=== PATIENT | male | born 1985 | race Caucasian/White ===

== ENCOUNTER 2020-12-16 07:59 | Day surgery (SDC) | payer BC ==
[~2020-12-16 07:59] MED LIST: Lactated Ringers 1,000 ML IV SCH
[2020-12-16] MEDS ORDERED: fentaNYL 100 MCG/2 ML SDV ONE (08:41)
[2020-12-16] MEDS ORDERED: Lidocaine 2% 5 ML SDV ONE (08:41)
--- NOTE | 2020-12-16 08:46 | PCM.PREANE ---
Preanesthetic Assessment - Anesthesia/Transfusion/Family Hx Anesthesia History: No Prior Anesthesia Other Type of Anesthesia Reaction Comment: states his mother had problems but not sure what it was Transfusion History: No Prior Transfusion(s) - Review of Systems General: No Symptoms Pulmonary: No Symptoms Cardiovascular: No Symptoms Gastrointestinal: Diarrhea, Difficulty Swallowing Neurological: No Symptoms Other: Reports: None - Physical Assessment NPO Status Date: 12/16/20 NPO Status Time: 00:00 Vital Signs: Last Vital Signs Temp 97.2 F 12/16/20 08:28 Pulse 62 12/16/20 08:28 Resp 16 12/16/20 08:28 BP 136/68 12/16/20 08:28 Pulse Ox 100 12/16/20 08:28 Height: 6 ft Weight: 205 lb ASA Class: 2 Mental Status: Alert & Oriented x3 Airway Class: Mallampati = 2 Dentition: Reports: Normal Dentition ROM/Head Extension: Full Lungs: Clear to Auscultation, Normal Respiratory Effort Cardiovascular: Regular Rate, Regular Rhythm - Allergies Allergies/Adverse Reactions: Allergies Allergy/AdvReac Type Severity Reaction Status Date / Time animal dander Allergy "showed up Verified 12/16/20 08:32 with allergy testing" - Blood Blood Available: No - Acknowledgements Anesthesia Type Planned: General Anesthesia Pt an Appropriate Candidate for the Planned Anesthesia: Yes Alternatives and Risks of Anesthesia Discussed w Pt/Guardian: Yes Pt/Guardian Understands and Agrees with Anesthesia Plan: Yes PreAnesthesia Questionnaire - Past Health History Medical/Surgical History: Denies Medical/Surgical History Gastrointestinal History: Reports: GERD, Other (See Below) Other Gastrointestinal History: RUQ pain, weight loss Musculoskeletal History: Reports: Arthritis, Back Pain, Chronic, Fracture Other Musculoskeletal History: hx fx arm, wrist, ankle & fingers Endocrine/Metabolic History: Reports: None - Past Surgical History Head Surgeries/Procedures: Reports: None GI Surgical History: Reports: None Endocrine Surgical History: Reports: None Musculoskeletal Surgical History: Reports: None - SUBSTANCE USE Tobacco Use Status *Q: Current Every Day Tobacco User Tobacco Use Within Last Twelve Months: Vaping Recreational Drug Type: Reports: Marijuana/Hashish Recreational Drug Last Use: vaps medical marijuana - HOME MEDS Home Medications: Home Meds Levocetirizine Dihydrochloride [Xyzal] 1 tab PO DAILY 12/10/20 [History] - CURRENT (IN HOUSE) MEDS Current Meds: Current Medications Lactated Ringer's (Ringers, Lactated) 1,000 mls @ 125 mls/hr IV ASDIRECTED ALBERTO Discontinued Medications Fentanyl (Fentanyl 100 Mcg/2 Ml Sdv) Confirm Administered Dose 100 mcg .ROUTE .STK-MED ONE Stop: 12/16/20 08:42 Lidocaine (Lidocaine 2% 5 Ml Sdv) Confirm Administered Dose 5 ml .ROUTE .STK-MED ONE Stop: 12/16/20 08:42
[2020-12-16] MEDS ORDERED: Propofol 200 MG/20 ML SDV ONE ×2 (09:36→09:52)
--- NOTE | 2020-12-16 10:22 | PCM.POSTAN ---
POST ANESTHESIA ASSESSMENT - MENTAL STATUS Mental Status: Alert, Oriented - VITAL SIGNS Vital Signs: Last Vital Signs Temp 97.2 F 12/16/20 08:28 Pulse 62 12/16/20 08:28 Resp 16 12/16/20 08:28 BP 136/68 12/16/20 08:28 Pulse Ox 100 12/16/20 08:28 - RESPIRATORY Respiratory Status: Respiratory Rate WNL, Airway Patent, O2 Saturation Stable - CARDIOVASCULAR CV Status: Pulse Rate WNL, Blood Pressure Stable - GASTROINTESTINAL GI Status: No Symptoms - POST OP HYDRATION Hydration Status: Adequate & Stable
--- NOTE | 2020-12-16 10:23 | PCM48HPAN ---
Post Anesthesia Note - EVALUATION WITHIN 48HRS OF ANESTHETIC Vital Signs in Normal Range: Yes Patient Participated in Evaluation: Yes Respiratory Function Stable: Yes Airway Patent: Yes Cardiovascular Function Stable: Yes Hydration Status Stable: Yes Pain Control Satisfactory: Yes Nausea and Vomiting Control Satisfactory: Yes Mental Status Recovered: Yes Vital Signs: Last Vital Signs Temp 97.2 F 12/16/20 08:28 Pulse 62 12/16/20 08:28 Resp 16 12/16/20 08:28 BP 136/68 12/16/20 08:28 Pulse Ox 100 12/16/20 08:28
--- NOTE | 2020-12-16 10:27 | PCM.OPNOTE ---
- General Post-Op/Procedure Note Date of Surgery/Procedure: 12/16/20 Operative Procedure(s): Colonoscopy with biopsies. EGD with Biopsies Findings: Mild gastritis Normal colonoscopy dictation number [id number] Pre Op Diagnosis: Epigastric pain and distal colon thickening seen on CT scan Post-Op Diagnosis: Mild gastritis. Normal colonoscopy Primary Surgeon: Jeronimo Warren Pathology: Biopsies of stomach and colon Condition: Good
--- NOTE | 2020-12-16 16:18 | OR ---
SURGEON: MARIBEL VALLEJO MD DATE OF PROCEDURE: 12/16/2020 PREOPERATIVE DIAGNOSES: 1. Epigastric pain. 2. Weight loss. 3. Distal colon thickening seen on CT. EXTENT OF THE COLONOSCOPY: To the cecum. EXTENT OF THE EGD: To at least the second part of the duodenum. BOWEL PREP: Excellent. LIMITATIONS: None. POSTOPERATIVE DIAGNOSES: 1. Mild gastritis. 2. Normal colonoscopy. PRIMARY SURGEON: Maribel Vallejo MD ANESTHESIA: With anesthesiologist. REASON FOR PROCEDURE: The patient is a pleasant 35-year-old gentleman who over the past year and a half has had about 80 to 90-pound weight loss. He also said he has some epigastric pain that radiates to his shoulder blade. It is more of a throbbing twisting sensation that gets worse throughout the day. The pain does not seem to be food related. Apparently, he had ultrasound which was normal. He also has a CT scan which shows some mild thickening of distal colon and rectum. The patient also says he has been having issues with chronic loose stools and also complains about a lot of postnasal drip and a chronic cough. I did go over with the patient risks, goals, and alternatives of the procedure pathology. PROCEDURE IN DETAIL: Physical exam was performed. The major risks and benefits associated with the procedure were explained to the patient in detail. The patient verbalized understanding and was in agreement with the same. The patient was then connected to the appropriate monitoring devices, and IV was started. EKG, pulse oximetry, blood pressure, and capnography were monitored throughout the entire procedure. Oxygen and sedation were provided by the anesthesiologist. The patient was placed in left lateral decubitus position. Sedation was began. After adequate sedation was achieved, the upper endoscope was advanced under direct visualization without difficulty into the upper GI tract, and mucosa of the esophagus, GE junction, stomach, pylorus, and at least the second part of the duodenum were all inspected. Duodenum appeared normal. Scope was brought out and both retro and antegrade views of the stomach were done. He did have some minimal gastritis more in the antrum. Biopsies of the antrum and the pylorus were taken to check for H pylori. Scope was brought back to the GE junction. GE junction was about 48 cm from his incisor. He appeared to have a good GE junction with a good squamocolumnar junction. The scope was brought into the stomach. Stomach was desufflated. Scope was brought up to the esophagus. Esophagus appeared normal. Scope was completely removed and this part of the procedure was terminated. Gloves and scopes were changed. Now, rectal exam was done. No rectal masses or polyps were felt. Now, a well- lubricated Olympus colonoscope was inserted into the rectum and advanced under direct visualization to the level of the cecum. Cecum was identified by both visual and anatomic landmarks. Photographs were taken of the cecal cap. The scope was then slowly withdrawn in a circular fashion looking at the color, texture, anatomy, and integrity of mucosa from the cecum to the anal canal. The patient had some very minimal liquid stool which was irrigated out for a good look at the mucosa. No lesions or polyps were seen. Because the patient had some thickening of the distal colon and rectum, I did do random biopsies throughout the left descending and sigmoid colon and rectum. The scope was retroflexed in the rectum. Scope was completely removed and the procedure was terminated. ENDOSCOPIC DIAGNOSES: 1. Mild gastritis. 2. Normal appearing colonoscopy, random biopsies done. RECOMMENDATION: The patient should follow up in clinic to go over the pathology. The patient may start some antacids and omeprazole if he develops mild gastritis. The patient to go over for his recommendations. JENNIE HULL /[id number]
== END 2020-12-16 11:22 | disposition home or self-care (01) ==
LOC: MW.SDS 07:59
PROVIDERS: ATTEND Surgery
DX: K29.70 Gastritis, unspecified, without bleeding (principal); K31.89 Other diseases of stomach and duodenum; K63.89 Other specified diseases of intestine; G89.29 Other chronic pain
CPT/HCPCS: 00813; J2704; J3010

== ENCOUNTER 2021-01-13 12:07 | Day surgery (SDC) | payer BC ==
[~2021-01-13 12:07] MED LIST changes: +Acetaminophen 1,000 MG in Premix Bag 1 BAG IV ONE; +Bupivacaine 0.5% 30 ML SDV ONE; +Dexamethasone 4 MG/ML 5 ML MDV ONE; +Glycopyrrolate 0.2 MG/ML SDV ONE; +Ketamine 500 mg/10 ML MDV ONE; +Ketorolac 30 MG/ML SDV ONE; +Lidocaine 2% 5 ML SDV ONE; +Lidocaine 2% Jelly 30 ML Tube ONE; +Octyl 2-Cyanoacrylate 1 Tube ONE; +Ondansetron 4 MG/2 ML SDV ONE; +Pregabalin 75 MG Cap PO SCH; +Propofol 200 MG/20 ML SDV ONE; +Rocuronium Bromide 50 MG/5 ML Syringe ONE; +fentaNYL 250 MCG/5 ML SDV ONE
[2021-01-13] MEDS ORDERED: Indocyanine Green 25 MG SDV ONE (12:43)
[2021-01-13] MEDS ORDERED: Fluorescein 5 ML Vial ONE (12:44)
--- NOTE | 2021-01-13 12:47 | PCM.PREANE ---
Preanesthetic Assessment - Anesthesia/Transfusion/Family Hx Anesthesia History: Prior Anesthesia Without Reaction Other Type of Anesthesia Reaction Comment: states his mother had problems but not sure what it was Transfusion History: No Prior Transfusion(s) - Review of Systems General: No Symptoms Pulmonary: No Symptoms, Other (Smokes/vapes) Cardiovascular: No Symptoms Gastrointestinal: No Symptoms Neurological: No Symptoms Other: Reports: None - Physical Assessment Vital Signs: Last Vital Signs Temp 36.8 C 01/13/21 12:25 Pulse 51 L 01/13/21 12:25 Resp 16 01/13/21 12:25 BP 117/58 L 01/13/21 12:25 Pulse Ox 97 01/13/21 12:25 Height: 6 ft Weight: 92.533 kg ASA Class: 2 Mental Status: Alert & Oriented x3 Airway Class: Mallampati = 3 Dentition: Reports: Normal Dentition Thyro-Mental Finger Breadths: 3 Mouth Opening Finger Breadths: 3 ROM/Head Extension: Full Lungs: Clear to Auscultation, Normal Respiratory Effort Cardiovascular: Regular Rate, Regular Rhythm - Allergies Allergies/Adverse Reactions: Allergies Allergy/AdvReac Type Severity Reaction Status Date / Time animal dander Allergy "showed up Verified 01/13/21 12:24 with allergy testing" - Acknowledgements Anesthesia Type Planned: General Anesthesia Pt an Appropriate Candidate for the Planned Anesthesia: Yes Alternatives and Risks of Anesthesia Discussed w Pt/Guardian: Yes Pt/Guardian Understands and Agrees with Anesthesia Plan: Yes PreAnesthesia Questionnaire - Past Health History Medical/Surgical History: Denies Medical/Surgical History HEENT History: Reports: Allergic Rhinitis Cardiovascular History: Reports: None Respiratory History: Reports: Asthma Other Respiratory History: allergy induced asthma- does not use an inhaler, only allergy medication Gastrointestinal History: Reports: GERD, Other (See Below) Other Gastrointestinal History: RUQ pain, weight loss Genitourinary History: Reports: None Musculoskeletal History: Reports: Arthritis, Back Pain, Chronic, Fracture Other Musculoskeletal History: hx fx arm, wrist, ankle & fingers Neurological History: Reports: None Psychiatric History: Reports: None Endocrine/Metabolic History: Reports: None Hematologic History: Reports: None Immunologic History: Reports: None Oncologic (Cancer) History: Reports: None Dermatologic History: Reports: None - Past Surgical History Head Surgeries/Procedures: Reports: None HEENT Surgical History: Reports: None Cardiovascular Surgical History: Reports: None Respiratory Surgical History: Reports: None GI Surgical History: Reports: Colonoscopy, EGD Male Surgical History: Reports: None Endocrine Surgical History: Reports: None Neurological Surgical History: Reports: None Musculoskeletal Surgical History: Reports: None Oncologic Surgical History: Reports: None - SUBSTANCE USE Tobacco Use Within Last Twelve Months: Snuff/Dip, Vaping Recreational Drug Use History: No - HOME MEDS Home Medications: Home Meds Cetirizine [ZyrTEC] 10 mg PO DAILY 01/07/21 [History] - CURRENT (IN HOUSE) MEDS Current Meds: Current Medications Lactated Ringer's (Ringers, Lactated) 1,000 mls @ 125 mls/hr IV ASDIRECTED ALBERTO Pregabalin (Pregabalin 75 Mg Cap) 150 mg PO DAILY ALBERTO Discontinued Medications Bupivacaine HCl (Bupivacaine 0.5% 30 Ml Sdv) Confirm Administered Dose 30 ml .ROUTE .STK-MED ONE Stop: 01/13/21 12:04 Dexamethasone (Dexamethasone 4 Mg/Ml 5 Ml Mdv) Confirm Administered Dose 20 mg .ROUTE .STK-MED ONE Stop: 01/13/21 10:39 Fentanyl (Fentanyl 250 Mcg/5 Ml Sdv) Confirm Administered Dose 250 mcg .ROUTE .STK-MED ONE Stop: 01/13/21 10:44 Glycopyrrolate (Glycopyrrolate 0.2 Mg/Ml Sdv) Confirm Administered Dose 0.2 mg .ROUTE .STK-MED ONE Stop: 01/13/21 10:39 Acetaminophen 1,000 mg/ Premix 100 mls @ 400 mls/hr IV NOW ONE Stop: 01/11/21 11:32 Acetaminophen (Ofirmev 1000 Mg/100 Ml) Confirm Administered Dose 100 mls @ as directed .ROUTE .STK-MED ONE Stop: 01/13/21 10:37 Ketamine HCl (Ketamine 500 Mg/10 Ml Mdv) Confirm Administered Dose 500 mg .ROUTE .STK-MED ONE Stop: 01/13/21 10:55 Ketorolac Tromethamine (Ketorolac 30 Mg/Ml Sdv) Confirm Administered Dose 30 mg .ROUTE .STK-MED ONE Stop: 01/13/21 10:39 Lidocaine (Lidocaine 2% 5 Ml Sdv) Confirm Administered Dose 5 ml .ROUTE .STK-MED ONE Stop: 01/13/21 10:39 Lidocaine HCl (Lidocaine 2% Jelly 30 Ml Tube) Confirm Administered Dose 30 ml .ROUTE .[employer] ONE Stop: 01/13/21 11:27 Octyl Cyanoacrylate (Octyl 2-Cyanoacrylate 1 Tube) Confirm Administered Dose 1 applic .ROUTE .[employer] ONE Stop: 01/13/21 12:04 Ondansetron HCl (Ondansetron 4 Mg/2 Ml Sdv) Confirm Administered Dose 4 mg .ROUTE .[employer] ONE Stop: 01/13/21 10:39 Propofol (Propofol 200 Mg/20 Ml Sdv) Confirm Administered Dose 200 mg .ROUTE .[employer] ONE Stop: 01/13/21 10:41 Rocuronium [place] (Rocuronium [place] 50 Mg/5 Ml Syringe) Confirm Administered Dose 50 mg .ROUTE .[employer] ONE Stop: 01/13/21 10:42
[2021-01-13] MEDS ORDERED: ceFAZolin 1 GM Vial ONE (12:51)
[2021-01-13] MEDS ORDERED: cefOXitin 1 GM Vial ONE (12:56)
[2021-01-13] MEDS ORDERED: Sugammadex Sodium 200 MG/2 ML VIAL ONE (13:22)
[2021-01-13] MEDS ORDERED: Naloxone 0.4 MG/ML Syringe IVPUSH PRN (13:33)
[2021-01-13] MEDS ORDERED: Metoclopramide 10 MG/2 ML SDV IVPUSH PRN (13:33)
[2021-01-13] MEDS ORDERED: Morphine 2 MG/ML SYRINGE IVPUSH PRN (13:33)
[2021-01-13] MEDS ORDERED: Ondansetron 4 MG/2 ML SDV IVPUSH PRN (13:33)
[2021-01-13] MEDS ORDERED: Albuterol 0.083% 2.5 MG/3 ML Neb Soln NEB PRN (13:33)
[2021-01-13] MEDS ORDERED: HYDROmorphone 1 MG/ML Syringe IVPUSH PRN (13:33)
[2021-01-13] MEDS ORDERED: Octyl 2-Cyanoacrylate 1 Tube ONE (14:26)
--- NOTE | 2021-01-13 14:44 | PCM.POSTAN ---
POST ANESTHESIA ASSESSMENT - MENTAL STATUS Mental Status: Alert, Oriented - VITAL SIGNS Vital Signs: Last Vital Signs Temp 36.5 C 01/13/21 14:37 Pulse 49 L 01/13/21 14:43 Resp 16 01/13/21 14:43 BP 121/52 L 01/13/21 14:43 Pulse Ox 97 01/13/21 14:43 - RESPIRATORY Respiratory Status: Respiratory Rate WNL, Airway Patent, O2 Saturation Stable - CARDIOVASCULAR CV Status: Pulse Rate WNL, Blood Pressure Stable - GASTROINTESTINAL GI Status: No Symptoms - POST OP HYDRATION Hydration Status: Adequate & Stable
--- NOTE | 2021-01-13 14:45 | PCM48HPAN ---
Post Anesthesia Note - EVALUATION WITHIN 48HRS OF ANESTHETIC Vital Signs in Normal Range: Yes Patient Participated in Evaluation: Yes Respiratory Function Stable: Yes Airway Patent: Yes Cardiovascular Function Stable: Yes Hydration Status Stable: Yes Pain Control Satisfactory: Yes Nausea and Vomiting Control Satisfactory: Yes Mental Status Recovered: Yes Vital Signs: Last Vital Signs Temp 36.5 C 01/13/21 14:37 Pulse 49 L 01/13/21 14:43 Resp 16 01/13/21 14:43 BP 121/52 L 01/13/21 14:43 Pulse Ox 97 01/13/21 14:43
[2021-01-13] MEDS: fentaNYL 100 MCG/2 ML SDV IVPUSH PRN ×2 (14:53→15:02)
--- NOTE | 2021-01-13 14:53 | PCM.OPNOTE ---
- General Post-Op/Procedure Note Date of Surgery/Procedure: 01/13/21 Operative Procedure(s): Laparscopic cholecystectomy Findings: dictation number [id number] Pre Op Diagnosis: Biliary dyskinesia Post-Op Diagnosis: Biliary dyskinesia Primary Surgeon: Jeronimo Warren Pathology: gallbladder EBL in mLs: 5 Complications: None Condition: Good
[2021-01-13] MEDS ORDERED: Acetaminophen/HYDROcodone 325-5 MG Tab PO ONE (16:06)
--- NOTE | 2021-01-14 17:33 | OR ---
SURGEON: MARIBEL VALLEJO MD DATE OF PROCEDURE: 01/13/2021 PREOPERATIVE DIAGNOSIS: Biliary dyskinesia. POSTOPERATIVE DIAGNOSIS: Biliary dyskinesia. PROCEDURE PERFORMED: Laparoscopic cholecystectomy. PRIMARY SURGEON: Maribel Vallejo MD ANESTHESIA: General. ESTIMATED BLOOD LOSS: 5 mL. SPECIMEN: Gallbladder. REASON FOR PROCEDURE: The patient is a pleasant 35-year-old gentleman who has been having weight loss, loose stools, and epigastric and right shoulder/scapula pain. The patient had an ultrasound which was normal, but did have a HIDA scan which showed biliary dyskinesia. He also had reproduction of similar symptoms with administration of CCK. We did go over again with the patient risks, alternatives of the procedure. Major risks would be that the gallbladder is not causing all the symptoms. The patient understands. Other risks include, but not limited to bleeding, infection, bile leak injury to nearby structures, need to convert to open, chronic loose stools, injury to nearby structures such as duodenum or common bile duct. The patient understands, wishes to proceed. OPERATIVE NARRATIVE: The patient was brought back to the OR. He was prepped and draped in usual sterile fashion. SCDs were placed. Preoperative antibiotics were given, and anesthesia was provided by the anesthesia team. After time-out was performed, an infraumbilical incision was made. This was carried down to his fascia. Fascia was then entered using open Gideon technique and a Gideon trocar was placed. An insufflation was begun. After insufflation, pneumoperitoneum was established. The abdomen was inspected. No entry wound was noted. Now, three more 5 mm trocars were placed, one in the midepigastric, one in the right upper quadrant, one in the lower right quadrant under direct visualization. The gallbladder did have more whitish hue to it. The gallbladder was grasped at the fundus and elevated. The cystic duct and artery were then carefully dissected out for a good critical view. The patient did have indocyanine green which showed a good critical view. The gallbladder was dissected up the fossa. Now, the cystic duct and cystic artery were clipped and transected. The rest of the gallbladder was removed with Harmonic scalpel. No other structures were countered. There was good hemostasis. The gallbladder was removed in EndoCatch bag. The operative area was then inspected again. There was good hemostasis. Clips appeared to be intact, in good position. Did do some minimal suction irrigation. Now, the 5 mm trocars were removed and the Gideon trocar was removed. The fascia was closed with a [id number] 0 Vicryl. Rest of the local was injected and all trocar sites were closed with 4- 0 Monocryl and Dermabond. At the end of the case, sponge and needle counts were correct. The patient was transferred to recovery room in stable condition. JENNIE HULL /[id number] MTDD
== END 2021-01-13 16:45 | disposition home or self-care (01) ==
LOC: MW.SDS 12:07
PROVIDERS: ATTEND Surgery
DX: K81.1 Chronic cholecystitis (principal); K82.8 Other specified diseases of gallbladder; K21.9 Gastro-esophageal reflux disease without esophagitis; Z79.899 Other long term (current) drug therapy; Z87.891 Personal history of nicotine dependence
CPT/HCPCS: 47562; A9270; J0131; J0690; J0694; J1100; J1885; J2704; J3010; J3490; J7030; J7120; 00790; J2405

== ENCOUNTER 2022-08-06 00:53 | Emergency (ER) | payer BC ==
[2022-08-06] MEDS ORDERED: Acetaminophen/HYDROcodone 325-5 MG Tab PO ONE (01:10)
== END 2022-08-06 02:20 | disposition home or self-care (01) ==
LOC: MW.ED 00:53
DX: S49.91XA Unspecified injury of right shoulder and upper arm, initial encounter (principal); K21.9 Gastro-esophageal reflux disease without esophagitis; Z91.048 Other nonmedicinal substance allergy status; Z79.899 Other long term (current) drug therapy
CPT/HCPCS: 73030; 99283; A9270

== ENCOUNTER 2023-10-12 11:46 | Emergency (ER) | payer OTHER ==
[2023-10-12] MEDS: Diazepam 2 MG Tab PO STA (12:23)
[2023-10-12 12:30] LABS: BASOPHILS ABSOLUTE AUTO 0.04 K/uL (0.00-0.20); BASOPHILS PERCENT AUTO 0.5 % (0.0-1.0); EOSINOPHILS ABSOLUTE AUTO 0.01 K/uL (0.00-0.45); EOSINOPHILS PERCENT AUTO 0.1 % (0.0-6.0); HEMATOCRIT 43.4 % (42.0-52.0); HEMOGLOBIN 15.2 g/dL (14.0-18.0); IMMATURE GRAN ABSOLUTE AUTO 0.03 K/uL (0.00-0.05); IMMATURE GRAN PERCENT AUTO 0.4 % (0.0-0.4); LYMPHOCYTES ABSOLUTE AUTO 1.26 K/uL (1.00-4.80); LYMPHOCYTES PERCENT AUTO 14.9 % (24.0-44.0); MEAN CORPUSCULAR HEMOGLOBIN 29.3 pg (28.0-32.0); MEAN CORPUSCULAR VOLUME 83.6 fL (83.0-99.0); MEAN PLATELET VOLUME 9.4 fL (9.4-12.4); MONOCYTES ABSOLUTE AUTO 0.49 K/uL (0.00-0.80); MONOCYTES PERCENT AUTO 5.8 % (0.0-8.0); NEUTROPHILS PERCENT AUTO 78.3 % (41.0-71.0); PLATELET COUNT,PLT 223 K/uL (150-400); RED BLOOD CELL COUNT 5.19 M/uL (4.52-5.90); WHITE BLOOD CELL COUNT,WBC 8.43 K/uL (3.9-11.3)
[2023-10-12 12:44] LABS: INR 1.02 (0.86-1.11)
[2023-10-12 13:10] LABS: A/G RATIO 1.4 (0.9-1.6); ALANINE AMINOTRANSFERASE,ALT 28 IU/L (14-63); ALBUMIN 4.4 g/dL (3.4-5.0); ALKALINE PHOSPHATASE 76 U/L (46-116); ASPARTATE AMNIOTRANSFERASE,AST 20 IU/L (15-37); BILIRUBIN TOTAL 0.7 mg/dL (0.2-1.0); BLOOD UREA NITROGEN,BUN 11 mg/dL (7.0-18.0); CALCIUM 9.4 mg/dL (8.5-10.1); CHLORIDE,CL 104 mmol/L (98-107); CREATININE 0.8 mg/dL (0.8-1.3); GLUCOSE RANDOM 103 mg/dL (74-106); LIPASE 26 U/L (16-77); PROTEIN TOTAL,TP 7.6 g/dL (6.4-8.2); SODIUM,NA 141 mmol/L (136-148)
[2023-10-12 13:12] LABS: MAGNESIUM 1.8 mg/dL (1.8-2.4)
[2023-10-12 13:14] LABS: ESTIMATED GFR 118 mL/min (>60)
[2023-10-12] MEDS: Iopamidol 755 MG/ML 500 ML Multipack Bottle IVPUSH STA (13:50)
== END 2023-10-12 14:36 | disposition home or self-care (01) ==
LOC: MW.ED 11:46
DX: R07.89 Other chest pain (principal); K21.9 Gastro-esophageal reflux disease without esophagitis; Z79.899 Other long term (current) drug therapy; Z91.048 Other nonmedicinal substance allergy status; Z75.8 Other problems related to medical facilities and other health care
CPT/HCPCS: 36415; 71275; 80053; 83690; 83735; 84484; 85025; 85610; 93005; 99285; A9270; Q9967; 93010; 99284